=== PATIENT | male | born 1955 | race Caucasian/White ===

== ENCOUNTER 2017-02-03 15:33 | Emergency (ER) | payer BC ==
[~2017-02-03] VITALS: Ht 185.4 cm; Wt 130.1 kg
[~2017-02-03 15:33] MED LIST: ACTOS15 MG PO; ATENOLOL50 MG PO; LEVOTHYROXINE100 MCG PO; METFORMIN HCL1000 MG PO
[2017-02-03 17:39] LABS: BASOPHIL COUNT 0.1 K/uL (0-0.1); EOSINOPHIL (%) 3.6 % (0-5); EOSINOPHIL COUNT 0.3 K/uL (0-0.3); HEMATOCRIT 40.7 % (38.0-50.0); IMMATURE GRANULOCYTE (%) 0.3 % (0.0-0.7); INSTRUMENT ABS NEUTROPHIL CT 4.8 K/uL; LYMPHOCYTE COUNT 1.8 K/uL (1.0-2.8); MCH 27.5 PG (29.0-34.0); MCHC 31.9 G/DL (30.0-36.0); MEAN PLAT.VOLUME 9.9 uM^3 (9.0-12.4); MONOCYTE (%) 4.9 % (3-12); MONOCYTE COUNT 0.4 K/uL (0-0.8); NEUTROPHIL (%) 65.7 % (45-76); NEUTROPHIL COUNT 4.8 K/uL (1.8-6.4); PLATELET COUNT 201 K/uL (156-360); RBC DIS.WIDTH-CV 13.3 % (11.8-14.6); RBC DIS.WIDTH-SD 41.7 % (39-53); RED BLOOD COUNT 4.73 M/uL (4.00-5.50); WHITE BLOOD COUNT 7.3 K/uL (4.1-10.2)
[2017-02-03 17:49] LABS: CHLORIDE 102 mEq/L (99-109); MAGNESIUM 2.1 mg/dL (1.3-2.7); POTASSIUM 4.1 mEq/L (3.7-5.4); SODIUM 138 mEq/L (136-147)
[2017-02-03 17:51] LABS: GLUCOSE 196 mg/dL (70-99)
[2017-02-03 17:52] LABS: ANION GAP 10 MEQ/L (2-14)
[2017-02-03 17:53] LABS: TOTAL BILIRUBIN 0.5 mg/dL (0.0-1.0)
[2017-02-03 17:54] LABS: ALKALINE PHOSPHATASE 62 IU/L (3-129)
[2017-02-03 17:55] LABS: GFR ESTIMATE (CALCULATED) > 59 mL/min/
[2017-02-03 17:56] LABS: UREA NITROGEN (BUN) 19 mg/dL (9-23)
[2017-02-03 18:01] LABS: TROP-I INTERPRETATION NEGATIVE; TROPONIN-I < 0.01 ng/mL (0.0-0.30)
[2017-02-03 20:20] VITALS: BP 142/80
== END 2017-02-03 20:44 | disposition home or self-care (01) ==
LOC: EME 15:33
PROVIDERS: Emergency Medicine
DX: I49.3 Ventricular premature depolarization (principal); R00.2 Palpitations; E11.9 Type 2 diabetes mellitus without complications; I10 Essential (primary) hypertension; E05.00 Thyrotoxicosis with diffuse goiter without thyrotoxic crisis or storm; Z82.49 Family history of ischemic heart disease and other diseases of the circulatory system; Z79.84 Long term (current) use of oral hypoglycemic drugs
CPT/HCPCS: 71020; 80053; 83735; 84443; 84484; 85025; 93005; 99281; 99284